=== PATIENT | female | born 1970 | race Two or more races ===

== ENCOUNTER 2025-02-19 12:15 | Emergency (ER) | payer MEDICAID, SELFPAY ==
[2025-02-19 12:57] VITALS: BP 143/85; PULSE 84; RESP 18; TEMP 36.7; O2SAT 98; BMI 35.1
--- NOTE | 2025-02-19 13:15 | PD.EDEXREM ---
ED Extremity Problem RME/HPI General Chief complaint: Extremity Injury, Lower Stated complaint: PAIN BEHIND R) KNEE Time Seen by Provider: 02/19/25 13:00 Arrival date/time: 02/19/25 12:15 RME / HPI RME / HPI Narrative: DR. JACOBO MAIN ED EVALUATION: 54-year-old female presents to the Emergency Department accompanied by her for evaluation of right leg pain, described as pain all over the leg but worse behind the right knee. The pain worsens with walking. The patient reports chronic varicose veins in both legs and states that the right leg also becomes swollen at times. She denies redness, fever, numbness, tingling, chest pain, or shortness of breath. No recent trauma. Related Data Previous Rx's ?Medication ?Instructions ?Recorded tramadol 50 mg tablet (Ultram) 50 mg PO Q6H PRN pain #10 tabs 06/16/18 Allergies Allergy/AdvReac Type Severity Reaction Status Date / Time No Known Allergies Allergy Verified 02/19/25 12:21 Review of Systems Review of Systems Systems Reviewed: All systems reviewed, normal except as documented Past Medical History Social History SMOKING STATUS: Never smoker SUBSTANCE USE: does not use ALCOHOL: Never ED Exam Narrative Physical exam: GENERAL APPEARANCE: alert and oriented x 4, well-developed, well-nourished, no acute distress VITALS: All vitals were reviewed and the pulse ox is 98% on room air, which is normal according to my interpretation. HEENT: Normocephalic, atraumatic; pupils equal, round, reactive to light; EOMI; mucous membranes pink, moist; oropharynx clear NECK: Supple LUNGS: CTABL; no wheezes, no rales, no rhonchi HEART: Regular rate, regular rhythm; normal S1, S2; no murmurs ABDOMEN: non distended; normal BS; soft, no tenderness, no guarding, no rebound; no masses, no organomegaly, no hernia BACK: no CVA tenderness EXTREMITIES: Right leg with mild swelling, tenderness posteriorly, and palpable small mass in the popliteal fossa consistent with possible Staples?s cyst; diffuse varicose veins bilaterally NEUROLOGIC: awake; alert and oriented x4; cranial nerves II-XII grossly intact; no focal sensory or motor deficits PSYCHIATRIC: appropriate mood and affect SKIN: warm, dry, normal color; no rashes Course Quality Measures none Orders Category Date Time Status Ketorolac Inj [Toradol Inj] Med 02/19/25 13:11 Discontinued 30 mg IM X1 ONE Vital Signs Vital signs: Vital Signs Temperature 98.1 F 02/19/25 12:57 Pulse Rate 84 02/19/25 12:57 Respiratory Rate 18 02/19/25 12:57 Blood Pressure 143/85 H 02/19/25 12:57 Pulse Oximetry (%) 98 02/19/25 12:57 Oxygen Delivery Method Room Air 02/19/25 12:57 Extremity Problem MDM Narrative MDM Narrative:: Natalia Kelly am scribing for and in the presence of Dr. Jacobo. Patient data External records reviewed:: [facility] previous records Clinical information provided by:: patient and spouse Social determinants that could affect healthcare access:: none Patient has the following chronic illnesses:: chronic varicose veins in both legs How is presenting disease/condition affected by chronic disease/condition?: caused by Evaluation data The following diagnostics were reviewed and interpreted by me:: other (specify) (none) Lab and/or radiology exams considered but not ordered:: none Interpretation Summary: n/a Medications / Prescriptions Medications or Prescriptions considered but not ordered:: none Medication administrations:: Medication Administration History Discontinued Medications Ketorolac Tromethamine (Ketorolac Inj 30 Mg/Ml Vial) 30 mg IM X1 ONE Stop: 02/19/25 13:12 Last Admin: 02/19/25 13:18 Dose: 30 mg Documented By: OA see above Consultations Consultation(s) initiated? (list below): No Diagnosis Extremity Problem Differential Diagnosis: other (Staples's cyst, DVT, and varicose vein inflammation.) Most likely diagnosis given after review of the tests above:: Varicose veins of both lower extremities Claudication Admission Indicated Admission indicated?: not indicated Admission Request Was there a request for admission?: No Disposition Plan Disposition Plan: Discharge Discharge Attestation Discharge Attestation: The patient and all family members were given an opportunity to ask questions and understood the discharge instructions. Discharge instructions specifically effects, indications for sooner follow up or return to the emergency department, and the expected course of current diagnosis. Patient condition: Stable Discharge Plan Plan Patient Disposition: HOME (Self Care) Prescriptions/Referrals Prescriptions/Med Rec: No Action tramadol [Ultram] 50 mg tablet 50 mg PO Q6H PRN (Reason: pain) Qty: 10 0RF Problem List Clinical Impression: Varicose veins of both lower extremities, Claudication Patient/Caregiver Discharge Instructions Education Materials: ED Peripheral Artery Disease (PAD), ED Varicose Veins Print Language: Citizen Of [place] Stand Alone Forms: Inés Award Info., Patient Portal Info Letter
[2025-02-19] MEDS: KETOROLAC INJ 30 MG/ML VIAL IM (13:18)
== END 2025-02-19 13:37 | disposition home or self-care (01) ==
LOC: SERX 13:31
PROVIDERS: Emergency Provider Emergency Medicine; PCP Nurse Practitioner Family
DX: M25.561 Pain in right knee (principal)
CPT/HCPCS: 99281; J1885